=== PATIENT | female | born 2000 | race Caucasian/White ===

== ENCOUNTER 2021-06-09 02:02 | Emergency (ER) | payer BC, SELFPAY ==
[2021-06-09 02:58] VITALS: BMI 26.6
--- NOTE | 2021-06-09 03:12 | ED.EAR ---
HPI - Ear Problem General Chief complaint: Ear Problems Stated complaint: ear pain Time Seen by Provider: 06/09/21 03:12 Source: patient Mode of arrival: ambulatory History of Present Illness HPI Narrative: 20-year-old female who presents with left ear discomfort without associated fever, chills, new cough but states that she has had a sore throat. Related Data Allergies Allergy/AdvReac Type Severity Reaction Status Date / Time No Known Allergies Allergy Verified 06/09/21 03:14 Review of Systems Review of Systems: Pertinent positives and negatives as stated in HPI 10 point review of systems is otherwise negative. [facility] Past Medical History Source: nursing notes reviewed Social History Social History Alcohol intake: current Alcohol intake frequency: a few times a month Patient Tobacco Use Status: Current someday Tobacco user Use of substances other than those prescribed or required for medical reasons: No Advance Directives: No Advance Directives Information Provided: Yes Physical Exam Vital Signs: Vital Signs: Last Vital Signs Temp 95.9 F L 06/09/21 03:14 Pulse 69 06/09/21 03:14 Resp 14 06/09/21 03:14 BP 127/58 L 06/09/21 03:14 Pulse Ox 98 06/09/21 03:14 Body Mass Index 26.6 VITAL SIGNS: Reviewed. GENERAL: Well developed, well nourished, in no acute distress. HEAD: Normocephalic/atraumatic, EYES: PERRLA, EOMI intact without pain, no nystagmus/pallor/icterus noted EARS: Ext canals without abnormality, TMs non-bulging and non-erythematous NOSE: Nares patent bilateral OROPHARYNX: no oral lesions noted, posterior pharynx clear and non-erythematous without noted tonsillar enlargement but noted exudates on the left, uvula is midline and there is no unilateral elevation of tonsillar pillars NECK: Supple, adenopathy noted on the left cervical chain that is not painful on palpation LUNGS: Normal breath sounds. No adventitious sounds or accessory muscle use. SpO2<98> CARDIOVASCULAR: Regular rate and rhythm without noted murmurs ABDOMEN: Soft, non-tender, non-distended with bowel sounds. SKIN: Inspection of the skin reveals no rashes NEUROLOGIC: Alert and oriented x 4. Course Course Course Narrative: 20-year-old female with history and clinical presentation consistent with pressure equalization pain, will rule out strep pharyngitis but otherwise no evidence of AOM. On review of all investigations there are no acute findings and patient informed that she likely has mild viral pharyngitis and was otherwise discharged home in stable condition with instructions to continue with combination analgesics and follow-up with her primary care provider. MDM - Ear Lab Data Labs: Lab Results 06/09/21 Range/Units 03:41 S. pyogenes GrpA CHRISTOPHE Negative (Negative) Discharge Plan Discharge Clinical Impression: Pharyngitis, Ear pain, left Patient Disposition: Home, Self-Care Instructions: Pharyngitis (ED), Earache (ED) Additional Instructions: 1. Consider saline gargles, this can be mixed together with warm tap water and table salt, gargle for 5 minutes, 3 to 4 times a day. 2. Avoid using cotton swabs to clean the left ear and instead you may consider using Debrox which is available in every [facility]. 3. Follow-up with your primary care provider in the next 2-3 days for re-evaluation. Return to the ER for acute worsening of symptoms. Referrals: Physician,Unknown J [Primary Care Provider] - 2 days
[2021-06-09 03:14] VITALS: BP 127/58; PULSE 69; RESP 14; TEMP 35.5; O2SAT 98
[2021-06-09] MEDS: Acetaminophen 325 MG TABLET 975 MG PO (03:49)
[2021-06-09] MEDS: Ibuprofen 400 MG TABLET PO (03:50)
[2021-06-09 03:56] LABS: Strep A Nucleic Acid Negative (Negative)
== END 2021-06-09 04:38 | disposition home or self-care (01) ==
PROVIDERS: Emergency Provider Student in an Organized Health Care Education/Training Program
DX: H92.02 Otalgia, left ear (principal); J02.9 Acute pharyngitis, unspecified
CPT/HCPCS: 36415; 87651; 99283; 99284